=== PATIENT | male | born 1985 | race Caucasian/White ===

== ENCOUNTER → 2023-03-17 | Outpatient (CLI) | payer BC ==
[2023-03-17 12:01] LABS: BASO % 0.6 % (0.0-1.0); EOS # 0.2 10*3/uL (0.0-0.4); EOS % 6.4 % (1.0-4.0); HEMATOCRIT 44.3 % (42.0-52.0); LYMPH % 33.2 % (27.0-41.0); MEAN CELL VOLUME 100.7 fl (80.0-94.0); MEAN CORPUSCULAR HGB 33.6 pg (27.0-31.0); MEAN CORPUSCULAR HGB CONC 33.4 g/dl (33.0-37.0); MEAN PLATELET VOLUME 10.7 fl (9.6-12.3); MONO # 0.3 10*3/uL (0.1-1.0); MONO % 10.9 % (3.0-9.0); NEUT # 1.5 10*3/uL (2.3-7.9); NEUT % 48.6 % (47.0-73.0); PLATELET COUNT AUTOMATED 133 10*3/uL (130-400); RED CELL DISTRI WIDTH 12.9 % (0-14.5); WHITE BLOOD COUNT 3.1 10*3/uL (4.8-10.8)
[2023-03-17 12:06] LABS: BILIRUBIN Negative (Negative); BLOOD Negative (Negative); CLARITY Clear (Clear); COLOR Yellow (Yellow); GLUCOSE Negative (Negative); KETONE Negative (Negative); LEUKO ESTERASE 1+ (Negative); NITRITE Negative (Negative); PH 5.5 (4.5-8.0); UROBILINOGEN 0.2 E.U./dl (0.0-1.0)
[2023-03-17 12:17] LABS: BACTERIA TRACE; WBC 16-20 wbc/hpf (0-5)
[2023-03-17 12:29] LABS: ALKALINE PHOSPHATASE 56 U/L (46-116); BUN 9 mg/dl (9-23); CHLORIDE 108 mmol/L (98-107); CHOLESTEROL 190 mg/dL (<200); GAMMA GLUTAMYL TRANSPEPTIDASE 142 U/L (0-73); LDL CHOLESTEROL 87 mg/dL (9-159); POTASSIUM 3.3 mmol/L (3.4-5.1); SGPT/ALT 258 U/L (5-49); T3 UPTAKE 27.3 % (22.4-36.7); THYROXINE (T4) TOTAL 6.7 ug/dl (4.5-10.9); TOTAL PROTEIN 6.3 gm/dL (6.0-8.0); TRIGLYCERIDES 110 mg/dl (<150); URIC ACID 6.1 mg/dL (3.7-9.2)
[2023-03-17 12:38] LABS: VITAMIN D, 25-HYDROXY 8.4 ng/mL (30-100)
[2023-03-20 12:07] LABS: ANTI-DSDNA ANTIBODIES <1 IU/mL (0-9)
== END | disposition home or self-care (01) ==
LOC: LAB 11:29
PROVIDERS: ATTEND Family Medicine
DX: E78.5 Hyperlipidemia, unspecified (principal); R06.02 Shortness of breath; R79.89 Other specified abnormal findings of blood chemistry; E55.9 Vitamin D deficiency, unspecified; R74.8 Abnormal levels of other serum enzymes; R53.83 Other fatigue

== ENCOUNTER → 2023-04-12 | Outpatient (CLI) | payer BC ==
[2023-04-12 13:38] LABS: HEMATOCRIT 46.8 % (42.0-52.0); MEAN CELL VOLUME 100.2 fl (80.0-94.0); MEAN CORPUSCULAR HGB 33.2 pg (27.0-31.0); MEAN CORPUSCULAR HGB CONC 33.1 g/dl (33.0-37.0); MEAN PLATELET VOLUME 10.4 fl (9.6-12.3); PLATELET COUNT AUTOMATED 116 10*3/uL (130-400); RED BLOOD COUNT 4.67 10*6/uL (4.50-5.90); RED CELL DISTRI WIDTH 12.5 % (0-14.5); WHITE BLOOD COUNT 2.7 10*3/uL (4.8-10.8)
[2023-04-12 13:58] LABS: TOTAL PROTEIN 6.6 gm/dL (6.0-8.0)
[2023-04-12 14:02] LABS: BASOPHILS 4 % (0-1); PLATELET SUFFICIENCY LOW (NORMAL); POLYCHROMASIA SLIGHT; TOTAL CELLS COUNTED 100 #CELLS
[2023-04-12 14:03] LABS: OVALOCYTES FEW
[2023-04-13 06:08] LABS: TOTAL PROTEIN, SERUM 6.3 g/dL (6.0-8.5)
[2023-04-13 12:08] LABS: HBSAG Negative (Negative); HEP B CORE AB, IGM Negative (Negative); HEPATITIS C ANTIBODY Non Reactive (Non Reactive)
[2023-04-13 16:08] LABS: A/G RATIO 2.2 (0.7-1.7); ALBUMIN 4.3 g/dL (2.9-4.4); ALPHA-1-GLOBULIN 0.1 g/dL (0.0-0.4); ALPHA-2-GLOBULIN 0.6 g/dL (0.4-1.0); BETA GLOBULIN 0.8 g/dL (0.7-1.3); GAMMA GLOBULIN 0.5 g/dL (0.4-1.8)
== END | disposition home or self-care (01) ==
LOC: LAB 13:03
PROVIDERS: ATTEND Family Medicine
DX: E55.9 Vitamin D deficiency, unspecified (principal); R79.89 Other specified abnormal findings of blood chemistry; E78.5 Hyperlipidemia, unspecified; R53.83 Other fatigue

== ENCOUNTER → 2023-04-28 | Outpatient (CLI) | payer BC | END | disposition home or self-care (01) | LOC: US 07:40 | PROVIDERS: ATTEND Family Medicine | DX: K76.0 Fatty (change of) liver, not elsewhere classified (principal); N32.89 Other specified disorders of bladder; R94.5 Abnormal results of liver function studies; R10.2 Pelvic and perineal pain; Z96.0 Presence of urogenital implants ==

== ENCOUNTER → 2023-05-03 | Outpatient (CLI) | payer BC ==
[~2023-05-03] MED LIST: IOHEXOL 300 MG/ML 100 ML VIAL IV ONE
== END | disposition home or self-care (01) ==
LOC: CT 12:58
PROVIDERS: ATTEND Family Medicine
DX: K76.0 Fatty (change of) liver, not elsewhere classified (principal)

== ENCOUNTER → 2023-05-18 | Outpatient (CLI) | payer BC ==
[~2023-05-18] MED LIST changes: -IOHEXOL 300 MG/ML 100 ML VIAL IV ONE; +SINCALIDE 1.8 MCG in SODIUM CHLORIDE 0.9% 50 ML IV ONE; +SINCALIDE 5 MCG VIAL IV SCH; +Technetium Tc 99M Mebrofenin 1 KIT KIT IV SCH
== END | disposition home or self-care (01) ==
LOC: NM 05-08 01:33
PROVIDERS: ATTEND Family Medicine
DX: R10.84 Generalized abdominal pain (principal); R94.5 Abnormal results of liver function studies

== ENCOUNTER → 2024-03-26 | Outpatient (CLI) | payer OTHER ==
[2024-03-26 15:13] LABS: TOTAL PROTEIN 6.9 gm/dL (6.0-8.0)
== END | disposition home or self-care (01) ==
LOC: LAB 13:34
PROVIDERS: ATTEND Nurse Practitioner Family
DX: Z79.899 Other long term (current) drug therapy (principal)

== ENCOUNTER → 2024-04-22 | Outpatient (CLI) | payer OTHER ==
[2024-04-22 08:28] LABS: TOTAL PROTEIN 6.8 gm/dL (6.0-8.0)
== END | disposition home or self-care (01) ==
LOC: LAB 07:36
PROVIDERS: ATTEND Nurse Practitioner Family
DX: Z79.899 Other long term (current) drug therapy (principal)

== ENCOUNTER → 2024-12-12 | Outpatient (CLI) | payer OTHER | END | disposition home or self-care (01) | LOC: CARD 12:50 | DX: Z79.899 Other long term (current) drug therapy (principal) ==